=== PATIENT | female | born 1990 | race African-American/Black ===

== ENCOUNTER 2022-01-05 10:22 | Emergency (ER) | payer SELFPAY ==
[~2022-01-05] VITALS: Ht 175.3 cm; Wt 95.4 kg
[2022-01-05 10:36] VITALS: BP 169/75
--- NOTE | 2022-01-05 11:19 | PHYS DOC ---
Past Medical History Past Medical History: Hypertension Past Surgical History: No Surgical History Smoking Status: Never Smoker Alcohol Use: None General Adult EDM: Chief Complaint: ABSCESS HPI: HPI: Patient is a 31-year-old female presents to the emergency department concerning pain to the left pinky toe for the past several weeks. Patient is unable to articulate an exact time reference of onset. Patient reports she does wear heavy boots to get very moist. Patient denies traumatic injury to her left pinky toe. Patient does report severe itching along with pain that she rates at a 10 out of 10, is asking for a work excuse for today and tomorrow. Patient does report pain became worse over the past 2 days. Patient reports she is here from [place] on an out-of-town work assignment. Patient denies other physical complaints or physical concerns. Patient denies recent fever or chills, denies allergies to medications, states she does not take over-the-c ounter or prescription medications at home. Patient reports her last tetanus immunization was less than 5 years ago. Is currently on her menstrual cycle. Review of Systems: Review of Systems: 14 body systems of review of systems have been reviewed. See HPI for pertinent positives and negative responses, otherwise all other systems are negative, n onpertinent or noncontributory. Constitutional: Negative except as outlined in HPI above. Skin: Negative except as outlined in HPI above. Eyes: Negative except as outlined in HPI above. HENT: Negative except as outlined in HPI above. Respiratory: Negative except as outlined in HPI above. Cardiovascular: Negative except as outlined in HPI above. GI: Negative except as outlined in HPI above. : Negative except as outlined in HPI above. Musculoskeletal: Negative except as outlined in HPI above. Integument: Negative except as outlined in HPI above. Neurologic: Negative except as outlined in HPI above. Endocrine: Negative except as outlined in HPI above. Lymphatic: Negative except as outlined in HPI above. Psychiatric: Negative except as outlined in HPI above. Heart Score: C/O Chest Pain: No Risk Factors: Risk Factors: DM, Current or recent (<one month) smoker, HTN, HLP, family history of CAD, obesity. Risk Scores: Score 0 - 3: 2.5% MACE over next 6 weeks - Discharge Home Score 4 - 6: 20.3% MACE over next 6 weeks - Admit for Clinical Observation Score 7 - 10: 72.7% MACE over next 6 weeks - Early Invasive Strategies Allergies: Allergies: Allergies Coded Allergies Type Severity Reaction Last Updated Verified No Known Drug Allergies 01/05/22 No Physical Exam: PE: Constitutional: Well developed, well nourished, no acute distress, non-toxic appearance. 31-year-old female in no apparent distress. HENT: Normocephalic, atraumatic. Eyes: Conjunctiva normal, no discharge. Neck: Normal range of motion, no stridor. Cardiovascular: No cyanosis appreciated, distal cap refill less than 2 seconds. Lungs & Thorax: Patient is in no respiratory distress, no audible adventitious lung sounds appreciated. Abdomen: Nontender, no abnormalities noted. Skin: Warm, dry, no erythema, no rash. See extremity note for focused skin exam ination Back: No tenderness, no deformities. Extremities: No tenderness, no cyanosis, no clubbing, ROM intact, no edema. Except for left pinky toe and web of pinky toe plantar skin surfaces reveal interdigital skin maceration with erythematous underlying skin and is malodorous. Distal cap refill is less than 2 seconds equal bilateral lower extremity. There is no purulent drainage or abscess appreciated. There is 2+ equal dorsalis pedis pulses equal bilateral. Neurologic: Alert and oriented X 3, normal motor function, normal sensory function, no focal deficits noted. Psychologic: Affect normal, judgement normal, mood normal. Current Patient Data: Vital Signs: Vital Signs Date Time Temp Pulse Resp B/P (MAP) Pulse Ox O2 Delivery O2 Flow Rate FiO2 01/05/22 10:36 98.1 89 18 169/75 (106) 98 Room Air 98.1 EKG: EKG: [] Radiology/Procedures: Radiology/Procedures: [] Course & Med Decision Making: Course & Med Decision Making Pertinent Labs and Imaging studies reviewed. (See chart for details) 31-year-old female, vital signs reviewed, presents with emergency department concerning pain and infection to her left pinky toe. Physical examination is consistent with athlete's foot, discussed with patient keeping toes clean and dry, using cotton socks, airing shoes out, using topical antifungal cream twice a day after foot cleansing daily for the next 4 weeks, will give ibuprofen for pain and discomfort, will provide patient with requested work excuse. Discussed with patient strict follow-up with primary care for reevaluation when she returns home to [place], will give area health care providers and clinics in the event patient stays to work for an extended period of time in the [facility]. Patient gave verbal understanding of and is amenable to ED discharge planning. Discussed with the patient all findings and diagnostic testing as well as the need to follow-up with their primary care provider for further evaluation and treatment or return to the ED if any new or worsening symptoms. Strict return precautions were also discussed at length, the patient voiced understanding and agreement with the discharge planning. The patient was nontoxic in appearance, in no apparent distress, and hemodynamically stable at the time of disposition. Lot78 Disclaimer: Lot78 Disclaimer: This electronic medical record was generated, in whole or in part, using a voice recognition dictation system. Departure Departure Impression: Primary Impression: Athlete's foot on left Disposition: 01 HOME / SELF CARE / HOMELESS Condition: GOOD Patient Instructions: Athlete's Foot Additional Instructions: You were seen today in the emergency department for pain to your left pinky toe. As we discussed you do have a athlete's foot infection. As we discussed I am prescribing you a topical ointment clotrimazole, please place to the affected area twice a day for the next 4 weeks. Please perform good foot hygiene, keep feet cool and dry, wear cotton socks, dry between your toes, allow your shoes to dry as moisture can increase any fungal growth of your foot. Please wear shower shoes or sandals in any public bath, showers or pools, you had indicated your visiting here for work and staying in a local hotel, please wear shower shoes in the room and bathroom as well. Do not share towels. Please follow-up with your primary care physician Dr. Zuñiga when you return home to [place]. If your work requires an extended length of stay in this area, I have attached a list of area clinics and healthcare providers for you to follow-up with to this document. Thank you for visiting our Emergency Department. It was a pleasure taking care of you today in the emergency department and we appreciate you trusting us with your care. If any additional problems come up don't hesitate to return to visit us. Please follow up with your primary care provider so they can plan additional care if needed and know about the problem that you had. If symptoms worsen come back to the Emergency Department. Any concerning symptoms that start such as chest pain, shortness of air, weakness or numbness on one side of the body, running high fevers or any other concerning symptoms return to the ER. [facility] [address] [place] [address] [facility] [address] [facility] [place] [address] [facility] [address] [facility] [place] [address] [facility] [address] [place] [address] [facility] [address] [place] [address] [facility] [address] [place] [address] [facility] [address] [place] [address] [facility] [address] [place] [address] [facility] [address] [place] [address] [facility] [address] [place] [address] Scripts Ibuprofen (IBUPROFEN) 600 Mg Tablet 600 MG PO PRN Q6HRS PRN for INFLAMMATION, #20 TAB 0 Refills Prov: ABDIEL CR APRN 01/05/22 Clotrimazole (CLOTRIMAZOLE) 15 Gm Cream..g. 1 SHRUTHI TP BID for athletes foot, #45 GM 0 Refills Apply to the affected area of your foot 2 times daily for the next 4 weeks. Prov: ABDIEL CR APRN 01/05/22 ABDIEL CR APRN Jan 05, 2022 11:19
[2022-01-05] MEDS ORDERED: IBUP-1007 PO (11:31)
[2022-01-05] MEDS ORDERED: CLOT15CR23 TP (11:31)
[2022-01-05] MEDS ORDERED: HYDROcodone/APAP 5/325MG 1 TAB TABLET PO ONE (11:45)
[2022-01-05] MEDS ORDERED: IBUPROFEN 200 MG TABLET. PO ONE (11:45)
== END 2022-01-05 11:42 | disposition home or self-care (01) ==
LOC: ER 10:22
DX: B35.3 Tinea pedis (principal); I10 Essential (primary) hypertension
CPT/HCPCS: 99283